=== PATIENT | male | born 1955 | race Caucasian/White ===

== ENCOUNTER 2023-07-21 10:04 | Emergency (ER) | payer BC, SELFPAY ==
[2023-07-21 10:09] VITALS: BP 135/80
--- NOTE | 2023-07-21 10:19 | ED.GENMED ---
History of Present Illness
General
Chief Complaint: Fainting/Passed Out
Source: patient
Exam Limitations: none
Time Seen by Provider: 07/21/23 10:09
Nursing documentation reviewed up to this point in time: agreed with
Travel History
Have you had any contact with someone who has COVID-19?: No
Do you have any symptoms of coronavirus? Fever > 100 degrees, chills, cough, shortness of breath, sore throat, loss of taste or smell, muscle aches, or headache?: No
History of Present Illness
History of Present Illness:
68-year-old male presents to the ED for evaluation of syncope. Pt reports this morning he was initially up at 5 AM helping his son move back to bed got up to 9 mm for very nauseous. He has celiac disease and thought he might be nauseous because of
that. He went to the bathroom and while standing by the sink he reports he saw what looked like hair from his right eye. He did not feel the sensation something was in his eye but he saw what he describes looks like a squiggly hair. He did feel
very nauseous and felt he was in a pass out. He tried to walk to the toilet to sit down and apparently had a syncopal episode and must of hit his head on the toilet. was at bedside. He is not on blood thinners. He does feel soreness to his
forehead region but denies any actual headache. He complains of low back pain. He reports he lifted something yesterday and tweaked his low back and that is now hurting him worse. He only had a small sip of water this am. no visual complaints
here in the ED.
Past History
Past History
ED Past Medical History: Other (celiac, seasonal allegies,)
ED Past Surgical History: Orthopedic
Social History
Tobacco: Non-smoker
Personal:
Living: with family
Employment: Employed
Review of Systems
Review of Systems
Allergies reviewed?: Yes
All Other Systems: ROS reviewed and negative except as documented in HPI and ROS
Constitutional: Reports no symptoms; Denies fever, fatigue or chills
EENT: Reports no symptoms
Respiratory: Reports no symptoms
Cardiac: Reports syncope
ABD/GI: Reports nausea; Denies vomiting
: Reports no symptoms
Musculoskeletal: Reports back pain
Skin: Reports other (laceration to forehead )
Neurological: Denies headache
Psychiatric: Reports no symptoms
Phy Exam
General Physical Exam
General Presentation: no apparent distress
General age: appears stated age
General Skin: warm and dry
General Habitus: normal
Cardiovascular Exam
Cardiovascular Exam: regular rate/rhythm and no murmur
Pulmonary Exam
Pulmonary Exam: lungs clear and no respiratory distress
Gastrointestinal Exam
Gastrointestinal Exam: non tender and soft
Neurological Exam
Neurological Exam: alert, oriented x3, no motor deficits and no sensory deficits
Musculoskeletal Exam
Musculoskeletal Exam: full ROM and other (Normal inspection to back no midline tenderness tender throughout the paralumbar muscles; + 1 cm partial thickness laceration to forehead w/ abrasion )
Skin Exam
Skin Exam: normal color and warm/dry
Psychiatric Exam
Psychiatric Exam: normal mood/affect
Course
Orders/Labs/Results
Orders:
Orders
07/21/23 10:08
EKG [Electrocardiogram (*1)] Urgent
Reason for Study: Syncope
EKG- Treatment ONCE
07/21/23 10:16
CT Cervical Spine W/o Iv Contr Urgent
Comment:
Reason For Exam: trauma
CT Head W/o Iv Contrast Urgent
Comment:
Reason For Exam: trauma
Cardiac Monitoring- Treatment ONCE
IV Insert/Care/Rem.- Treatment PRN
07/21/23 10:17
Lumbar Spine Complete, 4 View [CR Lumbar Spine Comp Min 4 Vw*] Urgent
Comment:
Reason For Exam: trauma
07/21/23 10:25
Complete Blood Count/With Diff Urgent
Comprehensive Metabolic Panel Urgent
07/21/23 10:28
0.9% Sodium Chloride 1000 ml [Nss] 1,000 ml IV BOLUS
07/21/23 12:27
Dicyclomine HCl [Bentyl] 20 mg IM NOW STA
Ondansetron Injectable [Zofran] 4 mg IV NOW STA
07/21/23 12:28
Ondansetron Injectable [Zofran] 4 mg IV NOW STA
07/21/23 13:04
Ketorolac [Toradol] 15 mg .ROUTE .STK-MED ONE
07/21/23 13:06
Ketorolac [Toradol] 15 mg IV NOW STA
Abnormal Lab Results
07/21/23 07/21/23
10:25 10:36
MCHC 32.5 L g/dL
(33.0-37.0)
MPV 10.7 H fL
(7.4-10.4)
Glucose 111 H mg/dl
(70-99)
POC Glucose 105 H mg/dl
(70-99)
07/21/23 10:25
07/21/23 10:25
Vital Signs
Initial and Last Documented VS:
Initial Vital Signs
Temp Pulse Resp BP Pulse Ox
98.1 F 90 16 135/80 96
07/21/23 10:09 07/21/23 10:09 07/21/23 10:09 07/21/23 10:09 07/21/23 10:09
Last Documented Vital Signs
Temp Pulse Resp BP Pulse Ox
98.1 F 84 14 127/77 99
07/21/23 10:09 07/21/23 13:00 07/21/23 13:00 07/21/23 13:00 07/21/23 13:00
Dog Sitter consulted with Physician
Dog Sitter consulted with physician?: Yes
Name of Physician Consulted: Tremaine
MDM/Problems Addressed
Differential Diagnosis Includes:
Not limited to syncope, head injury vasovagal episode, dehydration
MDM/Problems Addressed:
Patient is a 68-year-old male who had syncopal episode today sustaining laceration to forehead. Patient has documented probably this morning helped his son only has simple water went back to bed got up feeling very nauseous and bloated. He has a
history of celiac disease and nausea and bloating as not new for him. He felt a sensation that he had what he describes a hair in his right eye went to the bathroom felt nauseous and then walked over to the toilet to sit down because he thought he
may pass out and had a witnessed syncopal. witnessed it. EMS was called to scene patient arrives awake alert no acute distress with an obvious laceration to his forehead. He is able to give history. He does feel better on arrival but mildly
nauseous. He is not on blood thinners. CT head and cervical spine negative. Patient has some mild low back pain mostly muscular no midline lower tenderness. He lifted things yesterday and thinks he tweaked his back. X-rays of lumbar spine
negative. Patient was given fluids on arrival.
12:30: Wound repaired with glue. Patient still feels mildly nauseous and bloated will try IM Bentyl IV Zofran and IV Toradol for back discomfort. at bedside. Patient no longer has any sensation in his eye denies any headache. Case discussed
with ED physician will plan for discharge home with syncope laceration instructions and outpatient follow-up with ophtho for eye.
5723: Patient was reexamined he was given Bentyl and Toradol declined the Zofran however is feeling much better. Will DC with outpatient follow-up as discussed with PCP and ophthalmology
Chronic conditions affecting care:
celiac disease
*Radiology
Radiology exam reviewed: radiology read reviewed
*Pulse Oximetry
Patient hypoxic: no
*Critical Care Note
Total Time (30-74mins, 75-104mins- exclusive of procedures): Not Applicable
ED Attending Note
-
Portions of this chart may have been created with voice recognition software.� Occasional wrong word or��sound alike� substitutions may have occurred due to the inherent limitations of voice recognition software.
Discharge Plan
Departure
Patient Disposition: Home (Routine Discharge)
Date of Disposition: 07/21/23
Time of Disposition: 14:40
Patient with high blood pressure during this ER visit?: Yes
Condition: Fair
Covid-19: Not Applicable
Discharge Problem:
Syncope, Laceration
Instructions: Laceration Repair With Glue (DC), Syncope (Fainting) (DC), BLOOD PRESSURE
Prescriptions:
New
dicyclomine 20 mg tablet
20 mg PO QID PRN (Reason: abdominal cramping) Qty: 14 0RF
No Action
montelukast [Singulair] 4 MG tablet,chewable
4 mg PO DAILY
aspirin 81 MG tablet,delayed release (DR/EC)
81 mg PO DAILY
Bifidobacterium infantis [Align] 4 MG capsule
4 mg PO DAILY
cholecalciferol (vitamin D3) [Vitamin D3] 2,000 UNIT capsule
2,000 unit PO DAILY
mecobalamin (vitamin B12) 5,000 MCG tablet,disintegrating
5,000 mcg PO DAILY
ondansetron 4 MG tablet,disintegrating
4 mg PO TIDPRN PRN (Reason: nausea/vomiting) Qty: 6 0RF
Referrals:
Jhonatan Coleman MD [Active] -
Eric Morse MD [Family Provider] -
Activity Restrictions/Additional Instructions:
Keep wound clean and dry. Wound can get wet however do not apply antibiotic ointment to the area as this will break the glue down. Glue will fall off on its own within 5 to 7 days. As discussed ice affected areas for the next 24 hours 20 minutes
at a time several times a day followed by warm moist heat. You may take Tylenol for discomfort. As discussed I will send a prescription to pharmacy for Bentyl to take for abdominal spasm discomfort. Take as directed
In addition follow-up with ophthalmology in the next several days for reevaluation of right eye disturbance. Follow-up with family doctor the next several days for reevaluation of your symptoms and return if any worsening of symptoms.
Interventions
Interventions:
*Risk Screen - Suicide Last Done: 07/21/23 10:09
*General Assessment Last Done: 07/21/23 10:09
*Neglect/Abuse Screening Last Done: 07/21/23 10:09
ED- Fall Risk Assessment Last Done: 07/21/23 11:12
*ED COVID-19 Vaccine History Last Done: 07/21/23 11:12
ED- Cardiac Assessment Last Done: 07/21/23 11:12
ED- Neurological Assessment Last Done: 07/21/23 11:12
Discharge Date and Time
Print Language: [id number]
[2023-07-21 10:32] VITALS: BP 126/71
[2023-07-21] MEDS: NSS 1000 IV (10:34)
[2023-07-21 10:38] LABS: Glucose - Point of Care 105 mg/dl (70-99)
[2023-07-21 10:41] LABS: % Basophils 0.4 % (0-2); % Eosinophils 2.8 % (0-6); % Immature Granulocytes 0.2 % (0-0.5); % Lymphocytes 31.9 % (20.5-51.1); % Monocytes 6.4 % (1.7-9.3); % Neutrophils 58.3 % (42.2-75.2); Absolute Eosinophils 0.2 10^3/uL (0-0.7); Absolute Lymphocytes 1.8 10^3/uL (1.2-3.4); Absolute Monocytes 0.4 10^3/uL (0.1-0.6); Absolute Neutrophils 3.3 10^3/uL (1.4-6.5); Hematocrit 42.8 % (39.0-52.0); Hemoglobin 13.9 g/dL (13.0-18.0); Mean Corp Hgb Conc. 32.5 g/dL (33.0-37.0); Mean Corpuscular Hgb 29.1 pg (27.0-31.0); Mean Corpuscular Volume 89.5 fL (80.0-94.0); Mean Platelet Volume 10.7 fL (7.4-10.4); Nucleated Red Blood Cells % 0 % (-); Platelet Count 182 10^3/uL (130-400); Red Blood Cell Count 4.78 10^6/uL (4.70-6.10); White Blood Cell Count 5.6 10^3/uL (4.8-10.8)
[2023-07-21 10:47] LABS: ALT (SGPT) 28 U/L (0-50); AST (SGOT) 35 U/L (17-59); Albumin 4.3 g/dl (3.5-5.0); Alkaline Phosphatase 78 U/L (38-126); Blood Urea Nitrogen 19 mg/dl (9-20); Calcium 9.7 mg/dl (8.4-10.2); Carbon Dioxide 27 mmol/L (22-30); Chloride 105 mmol/L (98-107); Glucose 111 mg/dl (70-99); Potassium 3.9 mmol/L (3.5-5.1); Sodium 137 mmol/L (135-145); Total Bilirubin 0.4 mg/dl (0.2-1.3); Total Protein 7.2 g/dl (6.3-8.2); eGFR > 60.00
[2023-07-21 11:08] VITALS: BP 141/61
[2023-07-21 12:00] VITALS: BP 136/67
[2023-07-21] MEDS: BENTYL 20 MG IM (12:49)
[2023-07-21 13:00] VITALS: BP 127/77
[2023-07-21] MEDS: TORADOL 15 MG IV (13:07)
[2023-07-21 14:06] VITALS: BP 131/79
== END 2023-07-21 14:59 | disposition home or self-care (01) ==
LOC: EMR 10:04
PROVIDERS: Nurse Practitioner; EMERGENCY PHYSICIAN Emergency Medicine; FAMILY PHYSICIAN Family Medicine
DX: R55 Syncope and collapse (principal); R11.0 Nausea; M54.50 Low back pain, unspecified; S01.81XA Laceration without foreign body of other part of head, initial encounter; X58.XXXA Exposure to other specified factors, initial encounter; R03.0 Elevated blood-pressure reading, without diagnosis of hypertension; K90.0 Celiac disease; G47.30 Sleep apnea, unspecified; Z79.82 Long term (current) use of aspirin
CPT/HCPCS: 99285; 96374; 96361; 96372; 70450; 72110; 72125; 80053; 82962; 85025; 93005